=== PATIENT | female | born 1965 | race Caucasian/White ===

== ENCOUNTER 2023-06-08 13:29 | Emergency (ER) | payer OTHER, SELFPAY ==
[2023-06-08] MEDS ORDERED: Bacitracin 1 PK ONE (14:11)
== END 2023-06-08 14:25 | disposition home or self-care (01) ==
LOC: NAV ERS 13:29
DX: S93.402A Sprain of unspecified ligament of left ankle, initial encounter (principal); F17.210 Nicotine dependence, cigarettes, uncomplicated; W19.XXXA Unspecified fall, initial encounter